=== PATIENT | female | born 1970 ===

== ENCOUNTER → 2022-04-01 | Day surgery (SDC) | payer OTHER ==
[~2022-04-01] VITALS: Ht 157.5 cm; Wt 68.0 kg
[~2022-04-01] MED LIST: LEVAQUIN500 MG PO; NORCO 5-325 TA1 EACH PO; PHENERGAN25 M1 PO; [UNRECOGNIZED DRUG - OTHER] PO; [UNRECOGNIZED DRUG - OTHER] PO; [UNRECOGNIZED DRUG - OTHER] PO
[2022-04-01 10:30] LABS: HCG (URINE) SCREEN NEGATIVE (NEGATIVE)
[2022-04-01 10:41] LABS: HCT 37.5 % (37.0-47.0); HGB 12.5 g/dl (12.5-16.0); MCH 28.7 pg (25.0-31.0); MCHC 33.3 g/dL (32.0-36.0); MPV 9.6 fL (6.0-9.5); RBC 4.36 M/uL (4.20-5.40); RDW 13.1 % (11.5-14.0)
[2022-04-01 10:58] LABS: ALBUMIN 3.5 g/dL (3.4-5.0); BILIRUBIN - TOTAL 0.6 mg/dL (0.2-1.0); BUN/CREAT RATIO (CALC) 17.9 RATIO; CREATININE 0.78 mg/dL (0.51-0.95); GLOBULIN (CALCULATION) 3.9 g/dL; TOTAL PROTEIN 7.4 g/dL (6.4-8.2)
== END | disposition home or self-care (01) ==
LOC: FAS 09:06
PROVIDERS: Surgery
DX: K80.12 Calculus of gallbladder with acute and chronic cholecystitis without obstruction (principal); K82.8 Other specified diseases of gallbladder; I10 Essential (primary) hypertension; E11.9 Type 2 diabetes mellitus without complications
CPT/HCPCS: 36415; 74300; 80053; 84703; 87070; 87075; 87205; J1170; J2250; J2405; J2704; J2710; J3010; J7120; Q9967